=== PATIENT | male | born 1990 | race Two or more races ===

== ENCOUNTER 2017-10-28 16:48 | Emergency (ER) | payer SELFPAY ==
[2017-10-28 17:18] VITALS: BP 121/82
[2017-10-28] MEDS ORDERED: IBUPROFEN 800 MG TABLET PO ONE (17:40)
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
--- NOTE | 2017-10-28 22:14 | EKG REPORT ---
SEVERITY:- OTHERWISE NORMAL ECG - SINUS BRADYCARDIA : Confirmed by: Kim Eaton 28-Oct-2017 22:14:00
== END 2017-10-28 19:50 | disposition home or self-care (01) ==
LOC: ER 16:48
DX: S20.212A Contusion of left front wall of thorax, initial encounter (principal); R06.00 Dyspnea, unspecified; Y04.2XXA Assault by strike against or bumped into by another person, initial encounter; F17.210 Nicotine dependence, cigarettes, uncomplicated; I48.91 Unspecified atrial fibrillation
CPT/HCPCS: 93005; 93010; 99285; 99406

== ENCOUNTER 2019-05-18 15:33 | Emergency (ER) | payer SELFPAY ==
[2019-05-18 15:41] VITALS: BP 119/70
[2019-05-18] MEDS ORDERED: IBUPROFEN 800 MG TABLET PO ONE (15:45)
--- NOTE | 2019-05-18 15:47 | ER Document Report ---
ED Medical Screen (RME) - General Chief Complaint: Arm Pain Stated Complaint: ARM INJURY Time Seen by Provider: 05/18/19 15:43 Mode of Arrival: Ambulatory Information source: Patient Notes: Patient presents with left elbow injury. Reports he slipped on tile floor and fell. Patient complains of pain with extension of left arm. He is right-hand dominant. Denies past medical history. Good radial pulse good cap refill. I have greeted and performed a rapid initial assessment of this patient. A comprehensive ED assessment and evaluation of the patient, analysis of test results and completion of the medical decision making process will be conducted by additional ED providers. Dictation of this chart was performed using voice recognition software; therefore, there may be some unintended grammatical errors. - Related Data Allergies/Adverse Reactions: No Known Allergies Allergy (Unverified 10/28/17 16:49) Past Medical History - Social History Chew tobacco use (# tins/day): No Frequency of alcohol use: Occasional Drug Abuse: None - Past Medical History Cardiac Medical History: Reports: Hx Atrial Fibrillation Renal/ Medical History: Denies: Hx Peritoneal Dialysis Physical Exam - Vital signs Vitals: Temp Pulse Resp BP Pulse Ox 98.2 F 80 18 119/70 100 05/18/19 15:40 05/18/19 15:40 05/18/19 15:40 05/18/19 15:40 05/18/19 15:40 Course - Vital Signs Vital signs: Temp Pulse Resp BP Pulse Ox 98.2 F 80 18 119/70 100 05/18/19 15:40 05/18/19 15:40 05/18/19 15:40 05/18/19 15:40 05/18/19 15:40
--- NOTE | 2019-05-18 16:19 | ER Document Report ---
ED Extremity Problem, Upper - General Chief Complaint: Arm Pain Stated Complaint: ARM INJURY Time Seen by Provider: 05/18/19 15:43 Primary Care Provider: [facility] [Provider Group] - Follow up as needed Mode of Arrival: Ambulatory Information source: Patient Notes: 31-year-old male presents to ED for complaint of left elbow injury. He states he slept on the carpeted floor of the stairs and fell down 3 steps landing on his elbow. He states he cannot extend his arm forward due to the pain. He is right-hand dominant. He denies any past medical history or any surgical history he does have good cap refills. He is alert oriented respirations regular nonlabored speaking in full sentences. TRAVEL OUTSIDE OF THE [place] IN LAST 30 DAYS: No - HPI Patient complains to provider of: Pain, Swelling, Left, Elbow Onset: Just prior to arrival Recent injury: Yes Where: Home Quality of pain: Achy, Sharp, Throbbing Severity of pain: Moderate Pain Level: 3 Context: Fall Exacerbated by: Movement, Exertion Relieved by: Positioning Similar symptoms previously: No Recently seen / treated by doctor: No - Related Data Allergies/Adverse Reactions: No Known Allergies Allergy (Verified 05/18/19 15:46) Past Medical History - General Information source: Patient - Social History Smoking Status: Current Every Day Smoker Cigarette use (# per day): Yes - Pack per day Chew tobacco use (# tins/day): No Smoking Education Provided: Yes - 4 minutes Frequency of alcohol use: Social Drug Abuse: None Occupation: Construction Lives with: Spouse/Significant other Family History: Arthritis. denies: CAD, COPD, CVA, DM, Hyperlipidemia, Hypertension, Malignancy, Thyroid Disfunction Patient has suicidal ideation: No Patient has homicidal ideation: No - Past Medical History Cardiac Medical History: Reports: None Pulmonary Medical History: Reports: None EENT Medical History: Reports: None Neurological Medical History: Reports: None Endocrine Medical History: Reports: None Renal/ Medical History: Reports: None Malignancy Medical History: Reports None GI Medical History: Reports: None Musculoskeletal Medical History: Reports None Skin Medical History: Reports None Psychiatric Medical History: Reports: None Traumatic Medical History: Reports: None Infectious Medical History: Reports: None Surgical Hx: Negative Past Surgical History: Reports: None - Immunizations Immunizations up to date: Yes Hx Diphtheria, Pertussis, Tetanus Vaccination: Yes Review of Systems - Review of Systems Constitutional: No symptoms reported EENT: No symptoms reported Cardiovascular: No symptoms reported Respiratory: No symptoms reported Gastrointestinal: No symptoms reported Genitourinary: No symptoms reported Male Genitourinary: No symptoms reported Musculoskeletal: Joint pain - Left elbow, Joint swelling, Muscle pain Skin: No symptoms reported Hematologic/Lymphatic: No symptoms reported Neurological/Psychological: No symptoms reported -: Yes All other systems reviewed and negative Physical Exam - Vital signs Vitals: Temp Pulse Resp BP Pulse Ox 98.2 F 80 18 119/70 100 05/18/19 15:40 05/18/19 15:40 05/18/19 15:40 05/18/19 15:40 05/18/19 15:40 Interpretation: Normal - General General appearance: Appears well, Alert - HEENT Head: Normocephalic, Atraumatic Eyes: Normal Pupils: PERRL - Respiratory Respiratory status: No respiratory distress Chest status: Nontender Breath sounds: Normal Chest palpation: Normal - Cardiovascular Rhythm: Regular Heart sounds: Normal auscultation Murmur: No - Abdominal Inspection: Normal Distension: No distension Bowel sounds: Normal Tenderness: Nontender Organomegaly: No organomegaly - Back Back: Normal, Nontender - Extremities General upper extremity: Normal temperature General lower extremity: Normal inspection, Nontender, Normal color, Normal ROM, Normal temperature, Normal weight bearing. No: Maddie's sign Elbow: Tender, Ecchymosis, Limited ROM. No: Abrasion, Deformity, Dislocation - Due to pain, Joint effusion, Laceration, Swollen bursa Forearm: Normal, Tender Wrist: Normal, Nontender Hand: Normal, Nontender - Neurological Neuro grossly intact: Yes Cognition: Normal Orientation: AAOx4 Tere Coma Scale Eye Opening: Spontaneous [place] Coma Scale Verbal: Oriented Tere Coma Scale Motor: Obeys Commands [place] Coma Scale Total: 15 Speech: Normal Motor strength normal: LUE, RUE, LLE, RLE Sensory: Normal - Psychological Associated symptoms: Normal affect, Normal mood - Skin Skin Temperature: Warm Skin Moisture: Dry Skin Color: Normal Course - Re-evaluation Re-evalutation: 05/18/19 21:32 X-ray was discussed with patient and written report of x-ray given to patient. Patient was treated with splint and sling and encouraged to follow-up with orthopedics. Patient was given a note for no work. Patient was discharged home with dispense pack of [place] for his pain. - Vital Signs Vital signs: Temp Pulse Resp BP Pulse Ox 98.2 F 80 18 119/70 100 05/18/19 15:40 05/18/19 15:40 05/18/19 15:40 05/18/19 15:40 05/18/19 15:40 - Diagnostic Test Radiology reviewed: Image reviewed, Reports reviewed Procedures - Immobilization Left Elbow Immobilizer type: Long arm posterior, Sling Performed by: PCT Post-Proc Neuro Vasc Exam: Normal Alignment checked and good: Yes Discharge - Discharge Clinical Impression: Elbow fracture, left Qualifiers: Encounter type: initial encounter Fracture type: closed Qualified Code(s): S42.402A - Unspecified fracture of lower end of left humerus, initial encounter for closed fracture Condition: Stable Disposition: HOME, SELF-CARE Additional Instructions: You have a minimally displaced transcondylar fracture of the distal left humerus with associated joint effusion or a left elbow fracture. You have a fracture of the bone to the upper arm at the elbow joint. You also has a fusion or large amount of fluid in the joint. You will need to have a splint on until you follow-up with orthopedics and then they will determine whether you need surgery or just a cast. Splint Pending Casting Your injury can't be casted until the swelling has subsided. Therefore, a temporary splint has been placed to protect the injury. Full use of an injured area is not possible in a splint. You should follow the doctor's instructions concerning rest, ice, and elevation of the injury. Never do anything which causes pain under the splint. Keep the splint on ALL THE TIME until you return for casting. If there is unexpected severe pain, or numbness, discoloration, or swelling beyond the splint, you should return at once. Acetaminophen Acetaminophen may be taken for pain relief or fever control. It's much safer than aspirin, offering a wider range of "safe" dosages. It is safe during . Some brand names are Tylenol, Panadol, Datril, Anacin 3, Tempra, and Liquiprin. Acetaminophen can be repeated every four hours. The following are maximum recommended dosages: WEIGHT Dose Drops Elixir Chewable(80mg) (LBS.) drprs=droppers tsp=teaspoon 6 40 mg .4 ml (1/2) 6-11 80 mg .8 ml (full) 1/2 tsp 1 tab 12-16 120 mg 1 1/2 drprs 3/4 tsp 1 1/2 tabs 17-23 160 mg 2 drprs 1 tsp 2 tabs 24-30 240 mg 3 drprs 1 1/2 tsp 3 tabs 30-35 320 mg 2 tsp 4 tabs 36-41 360 mg 2 1/4 tsp 4 1/2 tabs 42-47 400 mg 2 1/2 tsp 5 tabs 48-53 480 mg 3 tsp 6 tabs 54-59 520 mg 3 1/4 tsp 6 1/2 tabs 60-64 560 mg 3 1/2 tsp 7 tabs 65-70 600 mg 3 3/4 tsp 7 1/2 tabs 71-76 640 mg 4 tsp 8 tabs 77-82 720 mg 4 1/2 tsp 9 tabs 83-88 800 mg 5 tsp 10 tabs >89 pounds or adults 650 mg to 900 mg Acetaminophen can be repeated every four hours. Maximum daily dose not to exceed 4000 mg. These maximum recommended dosages are slightly higher than the dosages written on the product container, but these dosages are very safe and well below the toxic dosage for acetaminophen. Anti-Inflammatory Medication You have received a prescription for an antiinflammatory agent. This is an excellent, safe drug for pain control. In addition, it has potent antiinflammatory effects which are beneficial, especially in the treatment of injuries, arthritis, or tendonitis. It's best to take this medicine with food. Persons with ulcer disease or allergy to aspirin should notify their physician of this before taking this drug. Take the medication exactly as prescribed. Don't take additional doses unless instructed to do so by your doctor. If you develop wheezing, shortness of breath, hives, faintness, stomach pain, vomiting, or dark black stools, return for re-evaluation at once. Ice & Elevation Apply ice packs frequently against the painful area. Many different schedules are recommended, such as "20 minutes on, 20 minutes off" or "one hour ice, two hours rest." If you need to work, you may need to go longer between ice treatments. You should plan to have the area ice packed AT LEAST one-fourth of the time. The ice should be applied over the wrap, tape, or splint, or over a layer of cloth -- not directly against the skin. Some ice bags have a built-in cloth and can be put directly on the skin. Your injured part should be elevated as much as possible over the next 48 hours. Try to keep the injury above the level of the heart. Avoid use of the injured area. Elevation and rest will decrease the swelling. FOLLOW-UP CARE: If you have been referred to a physician for follow-up care, call the physicians office for an appointment as you were instructed or within the next two days. If you experience worsening or a significant change in your symptoms, notify the physician immediately or return to the Emergency Department at any time for re-evaluation. Prescriptions: Naproxen [Naprosyn] 500 mg PO BID #20 tablet Referrals: [facility] [Provider Group] - Follow up as needed
--- NOTE | 2019-05-18 16:36 | RADIOLOGY REPORT (SQ) ---
EXAM DESCRIPTION: ELBOW LEFT OVER 2 VIEWS COMPLETED DATE/TIME: 05/18/2019 4:06 pm REASON FOR STUDY: fell, pain, swelling COMPARISON: None. NUMBER OF VIEWS: Three views. TECHNIQUE: AP, lateral, and single oblique radiographic images acquired of the left elbow. LIMITATIONS: None. FINDINGS: MINERALIZATION: Decreased. BONES: Minimally displaced transcondylar fracture of the distal left humerus. Alignment is near genevieve omic. No additional fractures identified. JOINT: Large joint effusion. SOFT TISSUES: Soft tissue swelling about the elbow. OTHER: No other significant finding. IMPRESSION: Minimally displaced transcondylar fracture of the distal left humerus with associated la rge joint effusion. TECHNICAL DOCUMENTATION: JOB ID: [id number] [employer]- All Rights Reserved Reading location - IP/workstation name: [email or web address]
[2019-05-18] MEDS ORDERED: HYDROCODONE/ACETAMINOPHEN 5-325 MG (6 TAB/ER DISP) PO PRN (18:00)
== END 2019-05-18 18:14 | disposition home or self-care (01) ==
LOC: ER 15:33
PROC: 2W39X1Z Immobilization of Left Upper Extremity using Splint (ICD-10-PCS; principal; 2019-05-18)
DX: S42.402A Unspecified fracture of lower end of left humerus, initial encounter for closed fracture (principal); M25.522 Pain in left elbow; M79.89 Other specified soft tissue disorders; W10.9XXA Fall (on) (from) unspecified stairs and steps, initial encounter; F17.210 Nicotine dependence, cigarettes, uncomplicated
CPT/HCPCS: 99283; 99406

== ENCOUNTER 2019-08-09 11:13 | Observation (INO) | payer SELFPAY ==
[2019-08-09] MEDS ORDERED: ONDANSETRON HCL INJ/PF 4 MG/2 ML SDV IV ONE ×2 (12:45→16:07)
[2019-08-09] MEDS ORDERED: NORMAL SALINE 1000 ML 1,000 ML IV ONE ×2 (12:45→17:44)
--- NOTE | 2019-08-09 12:50 | ER Document Report ---
ED Medical Screen (RME) - General Chief Complaint: Abdominal Pain Stated Complaint: ABDOMINAL PAIN Time Seen by Provider: 08/09/19 12:41 Notes: 28-year-old male presents the emergency room with complaints of generalized abdominal pain with nausea vomiting black tarry and bloody stool over the course of 1.5 weeks. Patient denies any new medications, foods or travel. Patient is vomiting continuously. Patient denies seeing a medical provider for this issue. Patient reports hemoptysis. Patient denies any fevers or chills, chest pain, shortness of breath. Patient suspects he may have an ulcer however denies taking any NSAIDs. I have greeted and performed a rapid initial assessment of this patient. A comprehensive ED assessment and evaluation of the patient, analysis of test results and completion of the medical decision making process will be conducted by additional ED providers. PHYSICAL EXAMINATION: GENERAL: Acutely ill, malnourished and in no acute distress. HEAD: Atraumatic, normocephalic. EYES: Pupils equal round extraocular movements intact, conjunctiva are normal. NECK: Normal range of motion LUNGS: No respiratory distress abd: generalized abd pain Musculoskeletal: Normal range of motion NEUROLOGICAL: Normal speech, normal gait. PSYCH: Normal mood, normal affect. SKIN: Warm, Dry, normal turgor, no rashes or lesions noted. TRAVEL OUTSIDE OF THE [place] IN LAST 30 DAYS: No - Related Data Allergies/Adverse Reactions: No Known Allergies Allergy (Verified 08/09/19 12:42) Past Medical History - Social History Chew tobacco use (# tins/day): No Frequency of alcohol use: None Drug Abuse: None - Past Medical History Cardiac Medical History: Reports: Hx Atrial Fibrillation Renal/ Medical History: Denies: Hx Peritoneal Dialysis - Immunizations Immunizations up to date: Yes Hx Diphtheria, Pertussis, Tetanus Vaccination: Yes Physical Exam - Vital signs Vitals: Temp Pulse Resp BP Pulse Ox 98.4 F 89 15 123/77 99 08/09/19 11:47 08/09/19 11:47 08/09/19 11:47 08/09/19 11:47 08/09/19 11:47 Course - Vital Signs Vital signs: Temp Pulse Resp BP Pulse Ox 98.4 F 89 15 123/77 99 08/09/19 12:42 08/09/19 11:47 08/09/19 12:42 08/09/19 11:47 08/09/19 12:42
[2019-08-09 13:17] LABS: ABSOLUTE EOSINOPHILS # (AUTO) 0.1 10^3/uL (0.0-0.6); ABSOLUTE LYMPHOCYTES (AUTO) 1.2 10^3/uL (0.5-4.7); ABSOLUTE MONOCYTES (AUTO) 1.1 10^3/uL (0.1-1.4); ABSOLUTE NEUT (AUTO) 6.7 10^3/uL (1.7-8.2); BASOPHILS % (AUTO) 0.4 % (0-2); EOSINOPHILS % (AUTO) 0.6 % (0-6); HEMATOCRIT 42.3 % (37.9-51.0); HEMOGLOBIN 14.7 g/dL (13.5-17.0); LYMPHOCYTES % (AUTO) 13.6 % (13-45); MEAN CORPUSCULAR HEMOGLOBIN 32.3 pg (27.0-33.4); MEAN CORPUSCULAR HGB CONC 34.7 g/dL (32.0-36.0); MEAN CORPUSCULAR VOLUME 93 fl (80-97); MONOCYTES % (AUTO) 11.9 % (3-13); PLATELET COUNT 181 10^3/uL (150-450); RED BLOOD COUNT 4.55 10^6/uL (4.35-5.55); RED CELL DISTRIBUTION WIDTH 13.6 % (11.5-14.0); SEGMENTED NEUTROPHILS % (AUTO) 73.5 % (42-78); TOTAL CELLS COUNTED % (AUTO) 100 %; WHITE BLOOD COUNT 9.1 10^3/uL (4.0-10.5)
[2019-08-09 13:21] LABS: APPEARANCE,URINE CLOUDY; BILIRUBIN,URINE MODERATE (NEGATIVE); COLOR,URINE AMBER; GLUCOSE, URINE NEGATIVE (NEGATIVE); KETONES,URINE 20 mg/dL (NEGATIVE); LEUKOCYTE ESTERASE,URINE NEGATIVE (NEGATIVE); NITRITE,URINE NEGATIVE (NEGATIVE); PROTEIN,URINE 100 mg/dL (NEGATIVE); URINE SPECIFIC GRAVITY 1.034
[2019-08-09 13:37] LABS: ALBUMIN 5.3 g/dL (3.5-5.0); ALKALINE PHOSPHATASE 159 U/L (38-126); ASPARTATE AMINO TRANSFERASE 372 U/L (17-59); BLOOD UREA NITROGEN 13 mg/dL (7-20); GLUCOSE 118 mg/dL (75-110); POTASSIUM 3.5 mmol/L (3.6-5.0); TOTAL PROTEIN 10.1 g/dL (6.3-8.2)
[2019-08-09 13:42] LABS: CARBON DIOXIDE 33 mmol/L (22-30); CHLORIDE 80 mmol/L (98-107)
[2019-08-09 13:48] LABS: ANION GAP 24 (5-19)
--- NOTE | 2019-08-09 16:43 | RADIOLOGY REPORT (SQ) ---
EXAM DESCRIPTION: CT ABD/PELVIS WITH IV ONLY COMPLETED DATE/TIME: 08/09/2019 4:33 pm REASON FOR STUDY: abd pain, n/v/ blood stools, anorexia x 1.5 weeks COMPARISON: None. TECHNIQUE: CT scan of the abdomen and pelvis performed using helical scanning technique with dynamic intravenous contrast injection. No oral contrast. Images reviewed with lung, soft tissue, and bone windows. Reconstructed coronal and sagittal MPR images reviewed. Delayed images for evaluation of the urinary system also acquired. All images stored on PACS. All CT scanners at this facility use dose modulation, iterative reconstruction, and/or weight based d osing when appropriate to reduce radiation dose to as low as reasonably achievable (ALARA). [facility]: Dose Right [facility]: CareDose [facility]: Dose Right [facility]: Teradose 4D [facility]: Waspit CONTRAST TYPE AND DOSE: contrast/concentration: Isovue 350.00 mg/ml; Total Contrast Delivered: 65.0 ml; Total Saline Delivered: 65.0 ml RENAL FUNCTION: None required. The patient is less than 50 years old. RADIATION DOSE: CT Rad equipment meets quality standard of care and radiation dose reduction techniq ues were employed. CTDIvol: NaN - NaN mGy. DLP: 0 mGy-cm.. LIMITATIONS: None. FINDINGS: LOWER CHEST: No significant findings. No nodules or infiltrates. LIVER: There is fatty infiltration of the liver. There is a prominent Julio's lobe. There is hepat omegaly. The liver measures over 22 cm in cranial caudal dimensions. SPLEEN: Normal size. No focal lesions. PANCREAS: No masses. No significant calcifications. No adjacent inflammation or peripancreatic fluid collections. Pancreatic duct not dilated. GALLBLADDER: No identified stones by CT criteria. No inflammatory changes to suggest cholecystitis. ADRENAL GLANDS: No significant masses or asymmetry. RIGHT KIDNEY AND URETER: No solid masses. No significant calcifications. No hydronephrosis or hyd roureter. LEFT KIDNEY AND URETER: No solid masses. No significant calcifications. No hydronephrosis or hydr oureter. AORTA AND VESSELS: No aneurysm. No dissection. Renal arteries, SMA, celiac without stenosis. RETROPERITONEUM: No retroperitoneal adenopathy, hemorrhage or masses. BOWEL AND PERITONEAL CAVITY: No masses or inflammatory changes. No free fluid or peritoneal masses. APPENDIX: Normal. PELVIS: No mass. No free fluid. Normal bladder. ABDOMINAL WALL: No masses. No hernias. BONES: No significant or acute findings. OTHER: No other significant finding. IMPRESSION: Hepatomegaly with steatosis. No other significant findings in the abdomen or pelvis. TECHNICAL DOCUMENTATION: JOB ID: [id number] Quality ID # [id number]: Final reports with documentation of one or more dose reduction techniques (e.g., Au tomated exposure control, adjustment of the mA and/or kV according to patient size, use of iterative reconstruction technique) 2010 [employer]- All Rights Reserved Reading location - IP/workstation name: [email or web address]
[2019-08-09] MEDS ORDERED: FAMOTIDINE INJ/PF 20 MG/2 ML SDV IV ONE (17:44)
--- NOTE | 2019-08-09 17:59 | ER Document Report ---
ED GI/ - General Chief Complaint: Abdominal Pain Stated Complaint: ABDOMINAL PAIN Time Seen by Provider: 08/09/19 12:41 Notes: Patient is a 28-year-old male who presents emergency department with a chief complaint of generalized abdominal pain. Patient reports his bowel middle pain have been present for 2 weeks. Patient reports every times he attempts to eat or drink he vomits. Patient reports the longest amount of time he can keep any thing down is for 20 minutes. Patient reports that he has had a black tarry stool and scant amount of bright red blood in his vomitus. Patient reports this is the third time this has occurred in the past year. Patient reports he does drink twice weekly and at that time he does drink multiple shots of liquor. Patient denies recreational drug use. Patient reports he has had frequent bowel movements with his last one being yesterday, more loose than normal and he did note there was dark blood. Patient denies any past medical or surgical history. Patient denies home medications. TRAVEL OUTSIDE OF THE [place] IN LAST 30 DAYS: No - Related Data Allergies/Adverse Reactions: No Known Allergies Allergy (Verified 08/09/19 12:42) Past Medical History - General Information source: Patient - Social History Smoking Status: Current Every Day Smoker Chew tobacco use (# tins/day): No Frequency of alcohol use: None Drug Abuse: None Lives with: Family Family History: Arthritis. denies: CAD, COPD, CVA, DM, Hyperlipidemia, Hypertension, Malignancy, Thyroid Disfunction Patient has suicidal ideation: No Patient has homicidal ideation: No - Past Medical History Cardiac Medical History: Reports: Hx Atrial Fibrillation Pulmonary Medical History: Reports: None EENT Medical History: Reports: None Neurological Medical History: Reports: None Endocrine Medical History: Reports: None Renal/ Medical History: Reports: None. Denies: Hx Peritoneal Dialysis Malignancy Medical History: Reports None GI Medical History: Reports: None Musculoskeletal Medical History: Reports None Skin Medical History: Reports None Psychiatric Medical History: Reports: None Traumatic Medical History: Reports: None Infectious Medical History: Reports: None Surgical Hx: Negative - Immunizations Immunizations up to date: Yes Hx Diphtheria, Pertussis, Tetanus Vaccination: Yes Review of Systems - Review of Systems Constitutional: No symptoms reported EENT: No symptoms reported Cardiovascular: No symptoms reported Respiratory: No symptoms reported Gastrointestinal: See HPI Genitourinary: No symptoms reported Male Genitourinary: No symptoms reported Musculoskeletal: No symptoms reported Skin: No symptoms reported Hematologic/Lymphatic: No symptoms reported Neurological/Psychological: No symptoms reported Physical Exam - Vital signs Vitals: Temp Pulse Resp BP Pulse Ox 98.4 F 89 15 123/77 99 08/09/19 11:47 08/09/19 11:47 08/09/19 11:47 08/09/19 11:47 08/09/19 11:47 Interpretation: Normal - Notes Notes: GENERAL: Well-appearing, well-nourished and in no acute distress. HEAD: Atraumatic, normocephalic. EYES: Pupils equal round and reactive to light, extraocular movements intact, sclera anicteric, conjunctiva are normal. ENT: Nares patent, oropharynx clear without exudates. Moist mucous membranes. NECK: Normal range of motion, supple without lymphadenopathy or JVD. LUNGS: Breath sounds clear to auscultation bilaterally and equal. No wheezes rales or rhonchi. HEART: Regular rate and rhythm without murmurs, rubs or gallops. ABDOMEN: Soft, nontender, normoactive bowel sounds. No guarding, no rebound. No masses appreciated. BACK: No cervical, thoracic, lumbar midline tenderness. No saddle anesthesia, normal distal neurovascular exam. GENITOURINARY: Deferred. EXTREMITIES: Normal range of motion, no pitting or edema. No clubbing or cyanosis. NEUROLOGICAL: Cranial nerves II through XII grossly intact. Normal speech, normal gait. PSYCH: Normal mood, normal affect. SKIN: Warm, Dry, normal turgor, no rashes or lesions noted. Course - Re-evaluation Re-evalutation: 08/09/19 18:02 Zaira Perea NP to come and evaluate patient for possible admission. Rectal examination was performed by myself, with Krupa Basilio RN at bedside. Stool occult was positive for blood. No external hemorrhoids noted. Patient did appear pretty dry on his lab work. Will give another dose of IV fluids as well as Pepcid. 08/09/19 19:13 Patient to be admitted. I did start a second liter of fluids, give IV Pepcid and a GI cocktail. Patient no acute distress. - Vital Signs Vital signs: Temp Pulse Resp BP Pulse Ox 98.4 F 89 15 123/77 99 08/09/19 12:42 08/09/19 11:47 08/09/19 12:42 08/09/19 11:47 08/09/19 12:42 - Laboratory Result Diagrams: 08/09/19 12:57 08/09/19 12:57 Laboratory results interpreted by me: 08/09/19 08/09/19 08/09/19 12:55 12:57 12:57 Potassium 3.5 L Chloride 80 L Carbon Dioxide 33 H Anion Gap 24 H Glucose 118 H POC Glucose 122 H Calcium 11.0 H Total Bilirubin 3.0 H Direct Bilirubin 2.0 H AST 372 H Alkaline Phosphatase 159 H Total Protein 10.1 H Albumin 5.3 H Urine Protein 100 H Urine Ketones 20 H Urine Bilirubin MODERATE H Urine Urobilinogen 4.0 H 08/09/19 19:13 Patient was noted to have an elevated ion gap, CO2 and elevated liver enzymes. Patient does not have a significant anemia or leukocytosis. Patient's lipase is normal at 215. Laboratory 08/09/19 08/09/19 08/09/19 12:55 12:57 12:57 WBC 9.1 RBC 4.55 Hgb 14.7 Hct 42.3 MCV 93 MCH 32.3 MCHC 34.7 RDW 13.6 Plt Count 181 Lymph % (Auto) 13.6 [place] % (Auto) 11.9 Eos % (Auto) 0.6 Baso % (Auto) 0.4 Absolute Neuts (auto) 6.7 Absolute Lymphs (auto) 1.2 Absolute Monos (auto) 1.1 Absolute Eos (auto) 0.1 Absolute Basos (auto) 0.0 Seg Neutrophils % 73.5 Sodium 137.0 Potassium 3.5 L Chloride 80 L Carbon Dioxide 33 H Anion Gap 24 H BUN 13 Creatinine 0.68 Est GFR ( Amer) > 60 Est GFR (MDRD) Non-Af > 60 Glucose 118 H POC Glucose 122 H Calcium 11.0 H Total Bilirubin 3.0 H Direct Bilirubin 2.0 H Neonat Total Bilirubin Not Reportable Neonat Direct Bilirubin Not Reportable Neonat Indirect Bili Not Reportable AST 372 H ALT 107 Alkaline Phosphatase 159 H Total Protein 10.1 H Albumin 5.3 H Lipase 215.3 Urine Color Urine Appearance Urine pH Ur Specific Deal Urine Protein Urine Glucose (UA) Urine Ketones Urine Blood Urine Nitrite Urine Bilirubin Urine Urobilinogen Ur Leukocyte Esterase Urine WBC (Auto) Urine RBC (Auto) U Non-Squamous Epis Auto Urine Mucus (Auto) Urine Ascorbic Acid POC Stool Occult Blood 08/09/19 08/09/19 12:57 17:53 WBC RBC Hgb Hct MCV MCH MCHC RDW Plt Count Lymph % (Auto) [place] % (Auto) Eos % (Auto) Baso % (Auto) Absolute Neuts (auto) Absolute Lymphs (auto) Absolute Monos (auto) Absolute Eos (auto) Absolute Basos (auto) Seg Neutrophils % Sodium Potassium Chloride Carbon Dioxide Anion Gap BUN Creatinine Est GFR ( Amer) Est GFR (MDRD) Non-Af Glucose POC Glucose Calcium Total Bilirubin Direct Bilirubin Neonat Total Bilirubin Neonat Direct Bilirubin Neonat Indirect Bili AST ALT Alkaline Phosphatase Total Protein Albumin Lipase Urine Color MAL[place]O Urine Appearance CLOUDY Urine pH 6.0 Ur Specific [place] 1.034 Urine Protein 100 H Urine Glucose (UA) NEGATIVE Urine Ketones 20 H Urine Blood NEGATIVE Urine Nitrite NEGATIVE Urine Bilirubin MODERATE H Urine Urobilinogen 4.0 H Ur Leukocyte Esterase NEGATIVE Urine WBC (Auto) 9 Urine RBC (Auto) 26 U Non-Squamous Epis Auto 4 Urine Mucus (Auto) MANY Urine Ascorbic Acid NEGATIVE POC Stool Occult Blood POSITIVE - Diagnostic Test Radiology reviewed: Reports reviewed Radiology results interpreted by me: 08/09/19 19:13 Abdomen/Pelvis CT 08/09/19 12:46 IMPRESSION: Hepatomegaly with steatosis. No other significant findings in the abdomen or pelvis. Discharge - Discharge Clinical Impression: Elevated liver enzymes Gastritis Qualifiers: Gastritis type: alcoholic Chronicity: acute Gastritis bleeding: presence of bleeding unspecified Qualified Code(s): K29.20 - Alcoholic gastritis without bleeding Vomiting Qualifiers: Vomiting type: unspecified Vomiting Intractability: non-intractable Nausea presence: with nausea Qualified Code(s): R11.2 - Nausea with vomiting, unspecified Condition: Stable Disposition: ADMITTED OBSERVATION Admitting Provider: Kecia (Hospitalist) Unit Admitted: Telemetry
[2019-08-09] MEDS ORDERED: NORMAL SALINE 1000 ML 1,000 ML with POTASSIUM CHLORIDE 20 MEQ, MAGNESIUM SULFATE 8 MEQ,... IV SCH ×5 (18:00)
[2019-08-09] MEDS ORDERED: METOCLOPRAMIDE HCL ORAL SOLN 10 MG/10 ML UDCUP PO ONE (18:08)
[2019-08-09] MEDS ORDERED: MAG HYDROX/AL HYDROX/SIMETH SUSP 30 ML UDCUP PO ONE (18:08)
[2019-08-09] MEDS ORDERED: LIDOCAINE 2% VISCOUS SOLN 20 ML UDCUP PO ONE (18:08)
[2019-08-09] MEDS ORDERED: ALBUTEROL SULFATE 0.083% NEB 2.5 MG/3 ML AMPUL NEB PRN (18:31)
[2019-08-09] MEDS ORDERED: ACETAMINOPHEN 650 MG SUPP.RECT PR PRN (18:31)
[2019-08-09] MEDS ORDERED: NORMAL SALINE 1000 ML 1,000 ML IV PRN (18:31)
[2019-08-09] MEDS ORDERED: ONDANSETRON HCL INJ/PF 4 MG/2 ML SDV IV PRN (18:31)
[2019-08-09] MEDS ORDERED: PROMETHAZINE HCL INJ 25 MG/1 ML VIAL IV PRN (18:31)
[2019-08-09] MEDS ORDERED: MAG HYDROX/AL HYDROX/SIMETH SUSP 30 ML UDCUP PO PRN (18:36)
[2019-08-09] MEDS ORDERED: LORAZEPAM INJ 2 MG/1 ML VIAL IV PRN (18:37)
[2019-08-09] MEDS ORDERED: DEXTROSE 40% GEL 15 GM TUBE PO PRN ×2 (18:49)
[2019-08-09] MEDS ORDERED: GLUCAGON,HUMAN RECOMB 1 MG INJ SUBCUT PRN (18:49)
[2019-08-09] MEDS ORDERED: DEXTROSE 50%-WATER 25 GM/50 ML DISP.SYRIN IV PRN ×2 (18:49)
--- NOTE | 2019-08-09 18:52 | PDOC H&P ---
History of Present Illness Patient complains of: abdominal pain, N/V History of Present Illness: URIEL SALCIDO is a 28 year old male with a past medical history significant for alcohol dependence with continuous use who presented to the emergency department today with a complaint of 2 weeks of generalized abdominal pain, nausea and vomiting. He reports that he has had 4-5 episodes of emesis today. He states that he is unable to hold down food or liquids at this time. He does admit to drinking 4-5 shots of hard alcohol at least 5 times weekly but then indicates that he likely drinks more than that. He states that his last alcohol intake was approximately 2 days ago. He denies history of alcohol withdrawal. He asserts that he is not interested in alcohol detox or rehabilitation at this time. Evaluation in the emergency department reveals stable vital signs, normal CBC, Anion gap acidosis with elevated LFTs, urinalysis confirming mild dehydration, positive occult stool, serum EtOH and UDS are pending. CT of the abdomen pelvis is significant for hepatomegaly with fatty liver disease. The patient is provided a GI cocktail and IV fluids. He is referred to the hospitalist service for admission and management of the above-stated complaints and findings. Past Medical History Cardiac Medical History: Reports: None Pulmonary Medical History: Reports: None EENT Medical History: Reports: None Neurological Medical History: Reports: None Endocrine Medical History: Reports: None Renal/ Medical History: Reports: None Malignancy Medical History: Reports: None GI Medical History: Reports: None Musculoskeltal Medical History: Reports: None Psychiatric Medical History: Reports: Alcohol Dependency Denies: Substance Abuse, Tobacco Dependency Traumatic Medical History: Reports: None Hematology: Reports: None Infectious Medical History: Reports: None Past Surgical History Past Surgical History: Reports: None Social History Information Source: Patient Lives with: Spouse/Significant other Smoking Status: Never Smoker Electronic Cigarette use?: No Frequency of Alcohol Use: Heavy Amount of Alcoholic Beverages Per Day: 5 Last Alcohol Use: 08/07/19 Hx Recreational Drug Use: No - Advance Directive Resuscitation Status: Full Code Surrogate healthcare decision maker:: The patient's mother, Eliane Del Cid, Family History Family History: Reviewed & Not Pertinent, Arthritis, CAD, Hypertension, Other - Alcohol dependence Parental Family History Reviewed: Yes Children Family History Reviewed: NA Sibling(s) Family History Reviewed.: NA Medication/Allergy Home Medications: Naproxen [Naprosyn] 500 mg PO BID #20 tablet 05/18/19 Allergies/Adverse Reactions: No Known Allergies Allergy (Verified 08/09/19 12:42) Review of Systems Constitutional: PRESENT: anorexia, weight loss. ABSENT: chills, fever(s), headache(s), weight gain Eyes: ABSENT: visual disturbances Ears: ABSENT: hearing changes Cardiovascular: ABSENT: chest pain, dyspnea on exertion, edema, orthropnea, palpitations Respiratory: ABSENT: cough, hemoptysis Gastrointestinal: PRESENT: abdominal pain, diarrhea, heartburn, nausea, vomiting. ABSENT: constipation, hematemesis, hematochezia Genitourinary: ABSENT: dysuria, hematuria Musculoskeletal: ABSENT: joint swelling Integumentary: ABSENT: rash, wounds Neurological: ABSENT: abnormal gait, abnormal speech, confusion, dizziness, focal weakness, syncope Psychiatric: ABSENT: anxiety, depression, homidical ideation, suicidal ideation Endocrine: ABSENT: cold intolerance, heat intolerance, polydipsia, polyuria Hematologic/Lymphatic: ABSENT: easy bleeding, easy bruising Physical Exam Vital Signs: Temp Pulse Resp BP Pulse Ox 98.4 F 89 15 123/77 99 08/09/19 12:42 08/09/19 11:47 08/09/19 12:42 08/09/19 11:47 08/09/19 12:42 Intake & Output 08/08/19 08/09/19 08/10/19 06:59 06:59 06:59 Intake Total 1000 Balance 1000 Weight 56.9 kg General appearance: PRESENT: no acute distress, disheveled, thin, well- developed, well-nourished Head exam: PRESENT: atraumatic, normocephalic Eye exam: PRESENT: conjunctiva pink, EOMI, PERRLA. ABSENT: scleral icterus Ear exam: PRESENT: normal external ear exam Mouth exam: PRESENT: dry mucosa, tongue midline Respiratory exam: PRESENT: clear to auscultation jose d, symmetrical, unlabored. ABSENT: rales, rhonchi, wheezes Cardiovascular exam: PRESENT: RRR, +S1, +S2. ABSENT: diastolic murmur, rubs, systolic murmur Pulses: PRESENT: normal dorsalis pedis pul Vascular exam: PRESENT: normal capillary refill GI/Abdominal exam: PRESENT: normal bowel sounds, soft, tenderness - Generalized. ABSENT: distended, guarding, mass, organolmegaly, rebound Rectal exam: PRESENT: deferred Extremities exam: PRESENT: full ROM. ABSENT: calf tenderness, clubbing, pedal edema Neurological exam: PRESENT: alert, awake, oriented to person, oriented to place, oriented to time, oriented to situation, CN II-XII grossly intact. ABSENT: motor sensory deficit Psychiatric exam: PRESENT: appropriate affect, normal mood. ABSENT: homicidal ideation, suicidal ideation Skin exam: PRESENT: dry, intact, warm. ABSENT: cyanosis, rash Results Laboratory Results: 08/09/19 12:57 08/09/19 12:57 08/09/19 08/09/19 08/09/19 12:57 12:57 12:57 WBC 9.1 RBC 4.55 Hgb 14.7 Hct 42.3 MCV 93 MCH 32.3 MCHC 34.7 RDW 13.6 Plt Count 181 Seg Neutrophils % 73.5 Sodium 137.0 Potassium 3.5 L Chloride 80 L Carbon Dioxide 33 H Anion Gap 24 H BUN 13 Creatinine 0.68 Est GFR ( Amer) > 60 Glucose 118 H Calcium 11.0 H Total Bilirubin 3.0 H AST 372 H Alkaline Phosphatase 159 H Total Protein 10.1 H Albumin 5.3 H Lipase 215.3 Urine Color MALDONADO Urine Appearance CLOUDY Urine pH 6.0 Ur Specific [place] 1.034 Urine Protein 100 H Urine Glucose (UA) NEGATIVE Urine Ketones 20 H Urine Blood NEGATIVE Urine Nitrite NEGATIVE Ur Leukocyte Esterase NEGATIVE Urine WBC (Auto) 9 Urine RBC (Auto) 26 Impressions: Abdomen/Pelvis CT 08/09/19 12:46 IMPRESSION: Hepatomegaly with steatosis. No other significant findings in the abdomen or pelvis. Assessment and Plan - Diagnosis (1) Increased anion gap metabolic acidosis Is this a current diagnosis for this admission?: Yes Plan: Secondary to alcohol dependence with gastritis and persistent vomiting resulting in dehydration. Anion gap 24, bicarb 33. Patient has received IV fluid boluses by the ED provider. We will continue generous IV fluids. Follow-up chemistry. Management of alcohol dependence as outlined below. (2) Alcohol dependence Qualifiers: Substance use status: other alcohol-induced disorder Qualified Code(s): F10.288 - Alcohol dependence with other alcohol-induced disorder Is this a current diagnosis for this admission?: Yes Plan: Alcohol dependence, with continuous use. Patient admits to drinking 5 shots of hard liquor 4-5 times weekly; then laughs and states that it is much higher than that but is unwilling to provide additional information. Reports his last alcohol intake was 2 days ago. He denies history of alcohol withdrawal. He denies interest in acute detox for alcohol rehabilitation services. Serum EtOH and UDS pending. Patient will be monitored on telemetry. Was provided IV banana bag nightly. IV Ativan as needed for withdrawal symptoms. Discharge planning and patient navigator consulted. (3) Elevated liver enzymes Is this a current diagnosis for this admission?: Yes Plan: Secondary to alcohol dependence and dehydration. CT reveals hepatomegaly with fatty liver disease. Hepatitis panel pending. Aggressive IV fluid resuscitation. Follow-up LFTs. Alcohol cessation strongly encouraged. (4) Gastritis Qualifiers: Gastritis type: alcoholic Chronicity: acute Gastritis bleeding: presence of bleeding unspecified Qualified Code(s): K29.20 - Alcoholic gastritis without bleeding Is this a current diagnosis for this admission?: Yes Plan: IV Protonix twice daily. P.o. Carafate every 6 hours. Maalox as needed. Ice chips only. Antiemetics as needed. IV fluids. Consider Surgery or GI consultation for EGD if does not rapidly improve. - Time Time Spent with patient: 35 or more minutes Medications reviewed and adjusted accordingly: Yes Anticipated discharge: Home Within: within 24 hours
[2019-08-09] MEDS ORDERED: POTASSI CL 20 MEQ/D5-1/2NS 1L 1,000 ML IV PRN (20:00)
[2019-08-09 20:02] LABS: URINE AMPHETAMINES SCREEN NEGATIVE; URINE BARBITURATES SCREEN NEGATIVE; URINE BENZODIAZEPINES SCREEN NEGATIVE; URINE COCAINE SCREEN NEGATIVE; URINE MARIJUANA (THC) SCREEN NEGATIVE; URINE METHADONE SCREEN NEGATIVE; URINE PHENCYCLIDINE SCREEN NEGATIVE
[2019-08-09 21:29] LABS: PHOSPHORUS 3.2 mg/dL (2.5-4.5)
[2019-08-09 22:32] LABS: ANION GAP 17 (5-19); BLOOD UREA NITROGEN 11 mg/dL (7-20); CARBON DIOXIDE 30 mmol/L (22-30); CHLORIDE 88 mmol/L (98-107); GLUCOSE 94 mg/dL (75-110); POTASSIUM 3.2 mmol/L (3.6-5.0)
[2019-08-09] MEDS: HEPARIN SOD (PORCINE) 5,000 UNIT/ML 1 ML VIAL SUBCUT SCH (22:51)
[2019-08-09] MEDS: PANTOPRAZOLE SODIUM 40 MG VIAL IV SCH (23:02)
[2019-08-09] MEDS: SUCRALFATE 1 GM TABLET PO SCH (23:03)
[2019-08-09] MEDS: NORMAL SALINE 1000 ML 1,000 ML with POTASSIUM CHLORIDE 20 MEQ, MAGNESIUM SULFATE 8 MEQ,... IV SCH ×5 (23:09)
[2019-08-10] MEDS: POTASSI CL 20 MEQ/50 ML RIDER 20 MEQ/50 ML RTUPB IV SCH ×2 (02:34→04:21)
[2019-08-10] MEDS: SUCRALFATE 1 GM TABLET PO SCH ×3 (05:30→18:06)
[2019-08-10] MEDS: HEPARIN SOD (PORCINE) 5,000 UNIT/ML 1 ML VIAL SUBCUT SCH ×2 (05:30→13:06)
[2019-08-10 07:22] LABS: HEMATOCRIT 34.3 % (37.9-51.0); MEAN CORPUSCULAR HEMOGLOBIN 32.1 pg (27.0-33.4); MEAN CORPUSCULAR HGB CONC 34.3 g/dL (32.0-36.0); MEAN CORPUSCULAR VOLUME 94 fl (80-97); PLATELET COUNT 121 10^3/uL (150-450); RED BLOOD COUNT 3.67 10^6/uL (4.35-5.55); RED CELL DISTRIBUTION WIDTH 13.7 % (11.5-14.0); WHITE BLOOD COUNT 6.8 10^3/uL (4.0-10.5)
[2019-08-10 07:23] LABS: HEMOGLOBIN 11.8 g/dL (13.5-17.0)
[2019-08-10 08:01] LABS: ALBUMIN 3.9 g/dL (3.5-5.0); ALKALINE PHOSPHATASE 98 U/L (38-126); ANION GAP 18 (5-19); ASPARTATE AMINO TRANSFERASE 251 U/L (17-59); BILIRUBIN,DIRECT 1.5 mg/dL (0.0-0.4); BILIRUBIN,TOTAL 2.3 mg/dL (0.2-1.3); BLOOD UREA NITROGEN 10 mg/dL (7-20); CALCIUM 9.2 mg/dL (8.4-10.2); CARBON DIOXIDE 28 mmol/L (22-30); CHLORIDE 88 mmol/L (98-107); POTASSIUM 3.5 mmol/L (3.6-5.0); TOTAL PROTEIN 7.2 g/dL (6.3-8.2)
[2019-08-10 08:05] LABS: GLUCOSE 63 mg/dL (75-110)
[2019-08-10] MEDS: PANTOPRAZOLE SODIUM 40 MG VIAL IV SCH (09:08)
[2019-08-10 16:43] VITALS: BP 93/54
[2019-08-10 17:13] LABS: ANION GAP 13 (5-19); BLOOD UREA NITROGEN 5 mg/dL (7-20); CARBON DIOXIDE 28 mmol/L (22-30); CHLORIDE 93 mmol/L (98-107); GLUCOSE 106 mg/dL (75-110); POTASSIUM 3.3 mmol/L (3.6-5.0)
[2019-08-10] MEDS ORDERED: POTASSIUM CHLORIDE 10 MEQ TABLET.ER PO ONE (17:37)
[2019-08-10] MEDS: NORMAL SALINE 1000 ML 1,000 ML with POTASSIUM CHLORIDE 20 MEQ, MAGNESIUM SULFATE 8 MEQ,... IV SCH ×5 (18:06)
--- NOTE | 2019-08-10 18:29 | PDOC DISCHARGE SUMMARY ---
Impression - Admit/DC Date/PCP Admission Date/Primary Care Provider: 08/09/19 18:42 Discharge Date: 08/10/19 - Discharge Diagnosis (1) Increased anion gap metabolic acidosis Is this a current diagnosis for this admission?: Yes (2) Alcohol dependence Is this a current diagnosis for this admission?: Yes (3) Elevated liver enzymes Is this a current diagnosis for this admission?: Yes (4) Gastritis Is this a current diagnosis for this admission?: Yes (5) Hypokalemia Is this a current diagnosis for this admission?: Yes - Additional Information Resuscitation Status: Full Code Discharge Diet: As Tolerated Discharge Activity: Activity As Tolerated, Balance Activity w/Rest Referrals: [facility] [Outside] - 08/30/19 10:30 am Prescriptions: Sucralfate [Carafate 1 gm Tablet] 1 gm PO Q6 #28 tablet Multivitamin [Daily Multiple Vitamin] 1 each PO DAILY #30 tablet Folic Acid 1 mg PO DAILY #30 tablet Lansoprazole [Prevacid] 30 mg PO QAM #30 capsule. Thiamine HCl [Thiamine 100 mg Tablet] 100 mg PO DAILY #30 tablet Ondansetron [Zofran Odt 4 mg Tablet] 1 - 2 tab PO Q4HP PRN #10 tab.rapdis PRN Reason: Home Medications: Acetaminophen [Tylenol 650 mg Supp] 650 mg VT Q4HP PRN supp.rect 08/10/19 Folic Acid 1 mg PO DAILY #30 tablet 08/10/19 Lansoprazole [Prevacid] 30 mg PO QAM #30 capsule. 08/10/19 Multivitamin [Daily Multiple Vitamin] 1 each PO DAILY #30 tablet 08/10/19 Ondansetron [Zofran Odt 4 mg Tablet] 1 - 2 tab PO Q4HP PRN #10 tab.rapdis 08/10/19 Sucralfate [Carafate 1 gm Tablet] 1 gm PO Q6 #28 tablet 08/10/19 Thiamine HCl [Thiamine 100 mg Tablet] 100 mg PO DAILY #30 tablet 08/10/19 History of Present Illiness History of Present Illness: URIEL SALCIDO is a 28 year old male with a past medical history significant for alcohol dependence with continuous use who presented to the emergency department today with a complaint of 2 weeks of generalized abdominal pain, nausea and vomiting. He reports that he has had 4-5 episodes of emesis today. He states that he is unable to hold down food or liquids at this time. He does admit to drinking 4-5 shots of hard alcohol at least 5 times weekly but then indicates that he likely drinks more than that. He states that his last alcohol intake was approximately 2 days ago. He denies history of alcohol withdrawal. He asserts that he is not interested in alcohol detox or rehabilitation at this time. Evaluation in the emergency department reveals stable vital signs, normal CBC, Anion gap acidosis with elevated LFTs, urinalysis confirming mild dehydration, positive occult stool, serum EtOH and UDS are pending. CT of the abdomen pelvis is significant for hepatomegaly with fatty liver disease. The patient is provided a GI cocktail and IV fluids. He is referred to the hospitalist service for admission and management of the above-stated complaints and findings. Hospital Course Hospital Course: The patient was admitted to the medical floor on continuous cardiac telemetry. He was provided aggressive IV fluid resuscitation. He was started on PPI and Carafate every 6 hours. He was initially placed in n.p.o. status and as his symptoms resolved was gradually advanced; now tolerating a soft, low residue, diet without discomfort, nausea or vomiting. Patient did require potassium replacement. Other electrolytes remained stable. Anion gap acidosis is resolved. He had no abnormal telemetry findings. Long discussion had today with patient and family at bedside regarding the need for him to discontinue all alcohol intake. Advised the patient that his liver findings on CT and lab work suggest liver disease and that continued alcohol intake will likely lead to full liver failure and shortened life expectancy. Unfortunately, the patient is not receptive at this time and does tell me that he intends to resume drinking upon discharge. The patient is discharged home in stable condition. His last alcohol intake was greater than 3 days ago; he is outside the window for alcohol withdrawal. He is advised to continue PPI and Carafate therapy. He is instructed to stop drinking. He is encouraged to eat a brat diet and advance slowly as tolerated. He is advised to return to the emergency department as needed for concerning symptoms. Physical Exam Vital Signs: Temp Pulse Resp BP Pulse Ox 98.6 F 74 16 93/54 L 100 08/10/19 16:00 08/10/19 16:00 08/10/19 16:00 08/10/19 16:00 08/10/19 16:00 Intake & Output 08/09/19 08/10/19 08/11/19 06:59 06:59 06:59 Intake Total 2094 1792 Output Total 0 Balance 2094 1792 Weight 59 kg General appearance: PRESENT: no acute distress, cooperative, thin, well- developed, well-nourished Head exam: PRESENT: atraumatic, normocephalic Eye exam: PRESENT: conjunctiva pink, EOMI, PERRLA. ABSENT: scleral icterus Ear exam: PRESENT: normal external ear exam Mouth exam: PRESENT: moist, tongue midline Respiratory exam: PRESENT: clear to auscultation jose d, symmetrical, unlabored. ABSENT: rales, rhonchi, wheezes Cardiovascular exam: PRESENT: RRR, +S1, +S2. ABSENT: diastolic murmur, rubs, systolic murmur Pulses: PRESENT: normal dorsalis pedis pul Vascular exam: PRESENT: normal capillary refill GI/Abdominal exam: PRESENT: normal bowel sounds, soft. ABSENT: distended, guarding, mass, organolmegaly, rebound, tenderness Rectal exam: PRESENT: deferred Extremities exam: PRESENT: full ROM. ABSENT: calf tenderness, clubbing, pedal edema Neurological exam: PRESENT: alert, awake, oriented to person, oriented to place, oriented to time, oriented to situation, CN II-XII grossly intact. ABSENT: motor sensory deficit Psychiatric exam: PRESENT: appropriate affect, normal mood. ABSENT: homicidal ideation, suicidal ideation Skin exam: PRESENT: dry, intact, warm. ABSENT: cyanosis, rash Results Laboratory Results: WBC 6.8 10^3/uL (4.0-10.5) 08/10/19 06:17 RBC 3.67 10^6/uL (4.35-5.55) L 08/10/19 06:17 Hgb 11.8 g/dL (13.5-17.0) L D 08/10/19 06:17 Hct 34.3 % (37.9-51.0) L 08/10/19 06:17 MCV 94 fl (80-97) 08/10/19 06:17 MCH 32.1 pg (27.0-33.4) 08/10/19 06:17 MCHC 34.3 g/dL (32.0-36.0) 08/10/19 06:17 RDW 13.7 % (11.5-14.0) 08/10/19 06:17 Plt Count 121 10^3/uL (150-450) L 08/10/19 06:17 Lymph % (Auto) 13.6 % (13-45) 08/09/19 12:57 Lake % (Auto) 11.9 % (3-13) 08/09/19 12:57 Eos % (Auto) 0.6 % (0-6) 08/09/19 12:57 Baso % (Auto) 0.4 % (0-2) 08/09/19 12:57 Absolute Neuts (auto) 6.7 10^3/uL (1.7-8.2) 08/09/19 12:57 Absolute Lymphs (auto) 1.2 10^3/uL (0.5-4.7) 08/09/19 12:57 Absolute Monos (auto) 1.1 10^3/uL (0.1-1.4) 08/09/19 12:57 Absolute Eos (auto) 0.1 10^3/uL (0.0-0.6) 08/09/19 12:57 Absolute Basos (auto) 0.0 10^3/uL (0.0-0.2) 08/09/19 12:57 Seg Neutrophils % 73.5 % (42-78) 08/09/19 12:57 Sodium 133.7 mmol/L (137-145) L 08/10/19 16:47 Potassium 3.3 mmol/L (3.6-5.0) L 08/10/19 16:47 Chloride 93 mmol/L (98-107) L 08/10/19 16:47 Carbon Dioxide 28 mmol/L (22-30) 08/10/19 16:47 Anion Gap 13 (5-19) 08/10/19 16:47 BUN 5 mg/dL (7-20) L 08/10/19 16:47 Creatinine 0.53 mg/dL (0.52-1.25) 08/10/19 16:47 Est GFR ( Amer) > 60 (>60) 08/10/19 16:47 Est GFR (MDRD) Non-Af > 60 (>60) 08/10/19 16:47 Glucose 106 mg/dL (75-110) 08/10/19 16:47 POC Glucose 135 mg/dL (70-110) H 08/10/19 15:44 Hemoglobin A1c % 4.7 % (4.7-6.0) 08/10/19 06:17 Calcium 9.0 mg/dL (8.4-10.2) 08/10/19 16:47 Phosphorus 3.2 mg/dL (2.5-4.5) 08/09/19 21:03 Magnesium 1.9 mg/dL (1.6-2.3) 08/09/19 21:03 Total Bilirubin 2.3 mg/dL (0.2-1.3) H 08/10/19 06:17 Direct Bilirubin 1.5 mg/dL (0.0-0.4) H 08/10/19 06:17 Neonat Total Bilirubin Not Reportable 08/10/19 06:17 Neonat Direct Bilirubin Not Reportable 08/10/19 06:17 Neonat Indirect Bili Not Reportable 08/10/19 06:17 AST 251 U/L (17-59) H 08/10/19 06:17 ALT 69 U/L (<50) 08/10/19 06:17 Alkaline Phosphatase 98 U/L (38-126) 08/10/19 06:17 Total Protein 7.2 g/dL (6.3-8.2) 08/10/19 06:17 Albumin 3.9 g/dL (3.5-5.0) 08/10/19 06:17 Lipase 215.3 U/L (23-300) 08/09/19 12:57 Urine Color MALDONADO 08/09/19 12:57 Urine Appearance CLOUDY 08/09/19 12:57 Urine pH 6.0 (5.0-9.0) 08/09/19 12:57 Ur Specific [place] 1.034 08/09/19 12:57 Urine Protein 100 mg/dL (NEGATIVE) H 08/09/19 12:57 Urine Glucose (UA) NEGATIVE mg/dL (NEGATIVE) 08/09/19 12:57 Urine Ketones 20 mg/dL (NEGATIVE) H 08/09/19 12:57 Urine Blood NEGATIVE (NEGATIVE) 08/09/19 12:57 Urine Nitrite NEGATIVE (NEGATIVE) 08/09/19 12:57 Urine Bilirubin MODERATE (NEGATIVE) H 08/09/19 12:57 Urine Urobilinogen 4.0 mg/dL (<2.0) H 08/09/19 12:57 Ur Leukocyte Esterase NEGATIVE (NEGATIVE) 08/09/19 12:57 Urine WBC (Auto) 9 /HPF 08/09/19 12:57 Urine RBC (Auto) 26 /HPF 08/09/19 12:57 U Non-Squamous Epis Auto 4 /HPF 08/09/19 12:57 Urine Mucus (Auto) MANY /LPF 08/09/19 12:57 Urine Ascorbic Acid NEGATIVE (NEGATIVE) 08/09/19 12:57 POC Stool Occult Blood POSITIVE (NEGATIVE) 08/09/19 17:53 Urine Opiates Screen NEGATIVE 08/09/19 12:57 Urine Methadone Screen NEGATIVE 08/09/19 12:57 Ur Barbiturates Screen NEGATIVE 08/09/19 12:57 Ur Phencyclidine Scrn NEGATIVE 08/09/19 12:57 Ur Amphetamines Screen NEGATIVE 08/09/19 12:57 U Benzodiazepines Scrn NEGATIVE 08/09/19 12:57 Urine Cocaine Screen NEGATIVE 08/09/19 12:57 U Marijuana (THC) Screen NEGATIVE 08/09/19 12:57 Serum Alcohol < 10 mg/dL (NONE DETECTED) 08/09/19 12:57 HIV 1&2 Antibody NEGATIVE (NEGATIVE) 08/09/19 12:57 Impressions: Abdomen/Pelvis CT 08/09/19 12:46 IMPRESSION: Hepatomegaly with steatosis. No other significant findings in the abdomen or pelvis. Plan Plan of Treatment: Patient is discharged to home in stable condition. Patient is advised to take medications as prescribed. He is instructed to STOP drinking alcohol. He is advised to eat a BRAT diet and advance slowly as tolerated. He is encouraged to return to the emergency department as needed for concerning symptoms. Time Spent: Greater than 30 Minutes Stroke Is this a Stroke Patient?: No Acute Heart Failure - Is this a Heart Failure Patient?: No
[2019-08-11 10:36] LABS: HEPATITS B SURFACE ANTIGEN Negative (Negative)
[2019-08-11 13:10] LABS: HEPATITIS C VIRUS ANTIBODY <0.1 s/co ratio (0.0-0.9)
== END 2019-08-10 18:06 | disposition home or self-care (01) ==
LOC: ER 11:13 → EH 18:42 → 5 21:39
PROVIDERS: ADMIT Family Medicine; ATTEND Family Medicine
DX: E87.2 Acidosis (principal); F10.288 Alcohol dependence with other alcohol-induced disorder; R74.8 Abnormal levels of other serum enzymes; K29.20 Alcoholic gastritis without bleeding; E87.6 Hypokalemia; E86.0 Dehydration; R19.5 Other fecal abnormalities; K76.0 Fatty (change of) liver, not elsewhere classified; R16.0 Hepatomegaly, not elsewhere classified; F17.200 Nicotine dependence, unspecified, uncomplicated; R63.4 Abnormal weight loss; Z79.899 Other long term (current) drug therapy; Z81.1 Family history of alcohol abuse and dependence
CPT/HCPCS: 99285; 96361; 96374; 96375; 36415 ×2; 82962 ×2; 80307 ×2; 83690; 83735; 84100; 85025; 85027; 80053 ×2; 81001; 86701; 83036; 80074; 74177; G0378 ×2; J3490 ×2; J3475; J3480 ×2; C9113 ×2; J3411; J2405 ×2; J7030; S0028